=== PATIENT | male | born 1995 | race Hispanic/Latino ===

== ENCOUNTER 2018-04-08 00:14 | Emergency (ER) | payer OTHER ==
[2018-04-08] MEDS ORDERED: ACETAMINOPHEN EXTRA STRENGTH 500 MG TABLET ONE (00:28)
[2018-04-08] MEDS ORDERED: CYCLOBENZAPRINE HCL 10 MG TABLET ONE (00:29)
== END 2018-04-08 00:50 | disposition home or self-care (01) ==
LOC: EDH 00:14
DX: M54.5 Low back pain (principal); R25.2 Cramp and spasm; Z72.0 Tobacco use

== ENCOUNTER 2019-05-06 12:57 | Emergency (ER) | payer OTHER ==
[2019-05-06] MEDS ORDERED: KETOROLAC TROMETHAMINE 60 MG/2 ML VIAL ONE (13:47)
[2019-05-06 13:55] LABS: APPEARANCE,URINE Clear (CLEAR); BILIRUBIN,URINE Negative (NEGATIVE); COLOR,URINE Yellow (YELLOW); GLUCOSE, URINE (UA) Negative (NEGATIVE); KETONES,URINE >=160 mg/dL (NEGATIVE); LEUKOCYTE ESTERASE ,URINE Negative (NEGATIVE); NITRATE,URINE Negative (NEGATIVE); OCCULT BLOOD,URINE Negative (NEGATIVE); PH,URINE 5.5 (5.0-8.0); PROTEIN,URINE POS 1+ mg/dL (NEGATIVE)
[2019-05-06 14:02] LABS: BACTERIA,URINE None Seen /HPF (None Seen); RBC,URINE 0-1 /HPF (0-1); SQUAMOUS EPITHELIAL CELL,UR 0-2 /HPF (0-2); WBC,URINE 0-1 /HPF (0-1)
[2019-05-06 14:03] LABS: MUCUS,URINE Few LPF (None Seen)
== END 2019-05-06 14:38 | disposition home or self-care (01) ==
LOC: EDH 12:57
DX: M54.5 Low back pain (principal); Z72.0 Tobacco use; V49.40XA Driver injured in collision with unspecified motor vehicles in traffic accident, initial encounter; Y93.89 Activity, other specified; Y92.89 Other specified places as the place of occurrence of the external cause; Y99.8 Other external cause status
CPT/HCPCS: 81001; 96372; 99283; J1885